=== PATIENT | female | born 1955 | race Asian ===

== ENCOUNTER 2018-07-29 08:17 | Day surgery (SDC) | payer OTHER ==
[~2018-07-29] VITALS: Ht 160 cm; Wt 65.8 kg
[2018-07-29] MEDS ORDERED: KETOROLAC 30 MG/ML VIAL ONE (09:55)
[2018-07-29] MEDS ORDERED: LIDOCAINE 2% 100 MG/5 ML UJET TP ONE (09:55)
== END 2018-07-29 11:25 | disposition home or self-care (01) ==
LOC: MDS 08:17 → MMU 08:20 → MDS 11:25
PROVIDERS: ATTEND Internal Medicine Gastroenterology
DX: D12.1 Benign neoplasm of appendix (principal); K64.8 Other hemorrhoids; K63.89 Other specified diseases of intestine; K21.9 Gastro-esophageal reflux disease without esophagitis; Z98.890 Other specified postprocedural states
CPT/HCPCS: 45385; J1885